=== PATIENT | male | born 1950 | race Caucasian/White ===

== ENCOUNTER 2020-04-22 13:12 | Emergency (ER) | payer MEDICARE, SELFPAY ==
--- NOTE | ~2020-04-22 | XR_ITS ---
EXAMINATION: XR chest 2V 04/22/2020 13:29 INDICATION: Cough and congestion. PROCEDURE: 2 view chest COMPARISON: No prior studies for comparison. FINDINGS: The lungs are clear. The cardiomediastinal silhouette is within normal limits. There are no pleural effusions. There is no pneumothorax suspected. IMPRESSION: 1: NO ACUTE CARDIOPULMONARY DISEASE. Reviewed, dictated and finalized at location A.
[2020-04-22 13:16] VITALS: BP 127/62; PULSE 80; RESP 20; TEMP 37.3; O2SAT 95
--- NOTE | 2020-04-22 13:20 | ED.URI ---
HPI - URI/Sore Throat General Chief Complaint: Upper Respiratory Infection Stated Complaint: cough/sob Time Seen by Provider: 04/22/20 13:20 Source: patient and RN notes reviewed Mode of arrival: ambulatory Limitations: no limitations History of Present Illness HPI Narrative: 69 year old male who presents to [facility] with complaints of 3 day history of cough with some difficulty breathing, sinus congestion and drainage, low grade temperature and general fatigue. Patient states that he has coughed so much that his ribs hurt. Patient denies any loss of smell or taste, no GI upset vomiting or diarrhea. He has not taken any OTC cold medication states that he is afraid to due to all the medications he takes, has taken some Tylenol only. He state that he does have a rescue inhaler at home but didn't think to use it. 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 He states that his PCP is at [facility] MD elicited complaint: cough, rhinorrhea, nasal congestion and other (shortness of breath) Pertinent past history: immunosuppression (RA) Onset (ago): day(s) (3) Consistency: constant Severity: moderate (bilateral ribs) Pain scale (0-10): 6 Description of mucous: clear and yellow Able to tolerate fluids by mouth: Yes Exacerbating factors: exertion and deep breaths Relieving factors: nothing Associated symptoms: fever (low grade), rhinorrhea, nasal congestion, cough, shortness of breath and other (fatigue) Treatments prior to arrival: acetaminophen Related Data Home Medications Medication Instructions Recorded Confirmed aspirin [Aspirin Low Dose] 04/22/20 ejaphylmj-ustdeltr-fvsexdifkt 1 tablet PO TID 04/22/20 04/22/20 gabapentin 600 mg PO TID 04/22/20 04/22/20 leflunomide 20 mg PO DAILY 04/22/20 04/22/20 levothyroxine 50 mcg PO DAILY 04/22/20 04/22/20 melatonin 04/22/20 sertraline 50 mg PO DAILY 04/22/20 04/22/20 sertraline 100 mg PO DAILY 04/22/20 04/22/20 simvastatin 40 mg PO HS 04/22/20 04/22/20 sulfasalazine 0.5 g PO DAILY 04/22/20 04/22/20 tamsulosin 0.4 mg PO DAILY 04/22/20 04/22/20 valsartan 160 mg PO DAILY 04/22/20 04/22/20 Allergies Allergy/AdvReac Type Severity Reaction Status Date / Time quinapril [From Accupril] Allergy Unknown Verified 04/22/20 13:20 Review of Systems Review of Systems: Narrative: CONSTITUTIONAL: reports mild temp elevation,no chills, or sweats. EYES: Denies visual changes, redness, or discharge. ENT: Positive rhinorrhea, congestion, no sore throat, or otalgia. CARDIOVASCULAR: Denies chest pain, palpitations, or edema. RESPIRATORY: Positive cough or dyspnea. GASTROINTESTINAL: Denies abdominal pain, nausea, vomiting, or diarrhea. GENITOURINARY: Denies dysuria or hematuria. SKIN: Denies rash or itching. MUSCULOSKELETAL: Denies back pain, joint pain, positive myalgia and fatigue NEUROLOGIC: Denies headache, numbness, or weakness. PSYCHIATRIC: Positive history of anxiety or depression. All systems reviewed & are unremarkable except as noted in HPI and below PMFSH Past Medical History Medical History (Updated 04/22/20 @ 14:34 by Marni Gordon NP) Cervical vertebral fusion Hyperlipidemia Hypertension Hypothyroidism Neuropathy Parkinsonism Rheumatoid arthritis Salivary duct carcinoma Sleep apnea Surgical History Surgical History (Updated 04/22/20 @ 14:27 by Marni Gordon NP) H/O left wrist surgery History of total right knee replacement Hx of shoulder surgery Social History Social History (Updated 04/22/20 @ 14:28 by Marni Gordon NP) Smoking status: Former smoker Alcohol intake: former Substance use: never Living arrangements: with family Occupation/Education: retired 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
== END 2020-04-22 14:07 | disposition home or self-care (01) ==
PROVIDERS: Emergency Provider Registered Nurse
DX: J40 Bronchitis, not specified as acute or chronic (principal); J06.9 Acute upper respiratory infection, unspecified; Z20.828 Contact with and (suspected) exposure to other viral communicable diseases; Z87.891 Personal history of nicotine dependence; Z96.651 Presence of right artificial knee joint; E78.5 Hyperlipidemia, unspecified; I10 Essential (primary) hypertension; E03.9 Hypothyroidism, unspecified; M06.9 Rheumatoid arthritis, unspecified; G47.30 Sleep apnea, unspecified; G62.9 Polyneuropathy, unspecified
CPT/HCPCS: 71046; 99213; G0463

== ENCOUNTER 2021-04-09 18:15 | Emergency (ER) | payer MEDICARE, SELFPAY ==
--- NOTE | ~2021-04-09 | XR_ITS ---
XR chest 2V DATE: 04/09/2021 18:35 INDICATION: Shortness of breath, wheezing, cough TECHNIQUE: PA and lateral views COMPARISON: 04/22/2020 PA and lateral FINDINGS: Status post lower anterior cervical spine surgical fusion. Diffuse idiopathic skeletal hyperostosis of the thoracic spine. Normal heart size. No hilar or mediastinal enlargement. No pulmonary infiltrate or consolidation, ple ural effusion or pulmonary vascular congestion or pneumothorax. IMPRESSION: No active cardiopulmonary disease Reviewed, dictated and finalized at location A.
[2021-04-09 18:20] VITALS: BP 164/78; PULSE 81; RESP 16; TEMP 36.5; O2SAT 96
--- NOTE | 2021-04-09 18:41 | ED.GENADULT ---
HPI - General Adult General Chief complaint: Upper Respiratory Infection Stated complaint: sob/wheezing/cough Time Seen by Provider: 04/09/21 18:28 Source: patient and RN notes reviewed Mode of arrival: ambulatory Limitations: no limitations History of Present Illness HPI narrative: 70-year-old male presents with complaints of congestion, sneezing, upper respiratory infection symptoms, cough, intermittent headache (not the worst of his life) and shortness of breath for the past 4-5 days. Nedwin reports increasing upper respiratory infections symptoms throughout the day with wheezing. No treatment. Received a NEGATIVE rapid COVID-19test prior to this visit. Constant dry cough with chest congestion. Rhinorrhea and nasal congestion. Denies sore throat. No high fevers, drooling, neck or throat swelling. No chest pain. No known exacerbation factors. Denies nausea, vomiting, and abdominal pain. Tolerating liquids well. Remains active. The patient reports he has not been diagnosed with COVID-19. The patient reports he received 2 Pfizer COVID-19 vaccines. The patient reports he is waiting for the results of a [id number] lab test. The patient reports he does not have weakness, fatigue, or myalgia. The patient reports he does not have any loss of taste or smell and diarrhea. Denies recent traveling. Denies concerns for COVID-19 or exposures. At this time, the patient is not suspected of having COVID-19. Some parts of this dictation were generated by voice recognition software and may contain typographical and/or grammatical inaccuracies. Related Data Home Medications Medication Instructions Recorded Confirmed aspirin [Aspirin Low Dose] 81 mg PO DAILY 04/22/20 04/09/21 ylexwievx-reojhene-fldhkzldok 1 tablet PO TID 04/22/20 04/09/21 gabapentin 600 mg PO TID 04/22/20 04/09/21 leflunomide 20 mg PO DAILY 04/22/20 04/09/21 levothyroxine 50 mcg PO DAILY 04/22/20 04/09/21 melatonin 2 mg PO USEASDIRECTD 04/22/20 04/09/21 sertraline 50 mg PO DAILY 04/22/20 04/09/21 sertraline 100 mg PO DAILY 04/22/20 04/09/21 simvastatin 40 mg PO HS 04/22/20 04/09/21 sulfasalazine 0.5 g PO DAILY 04/22/20 04/09/21 tamsulosin 0.4 mg PO DAILY 04/22/20 04/09/21 valsartan 160 mg PO DAILY 04/22/20 04/09/21 Allergies Allergy/AdvReac Type Severity Reaction Status Date / Time quinapril [From Accupril] Allergy Unknown Verified 04/09/21 18:21 Opioids-Meperidine and AdvReac Irritable Verified 04/09/21 18:22 Related Review of Systems Review of Systems: CONSTITUTIONAL: Denies fever, chills, sweats. EYES: Denies visual changes, redness, discharge. ENT: Complaints of rhinorrhea, congestion. Denies sore throat, otalgia. CARDIOVASCULAR: Denies chest pain, palpitations, edema. RESPIRATORY: Complaints of dyspnea, wheezing, cough. GASTROINTESTINAL: Denies abdominal pain, nausea, vomiting, diarrhea. GENITOURINARY: Denies dysuria, hematuria, abnormal discharge. SKIN: Denies rash or itching. MUSCULOSKELETAL: Denies acute back pain, joint pain, or myalgia. NEUROLOGIC: Denies numbness or focal weakness. Complaints of intermittent [place]. PSYCHIATRIC: Denies anxiety or depression. All systems reviewed & are unremarkable except as noted in HPI and below. [facility] Past Medical History Medical History (Updated 04/16/21 @ 14:00 by HOLLIS Mcghee) Cervical vertebral fusion Hyperlipidemia Hypertension Hypothyroidism Neuropathy Obese Parkinsonism Rheumatoid arthritis Rotator cuff arthropathy LT Salivary duct carcinoma Sleep apnea CPAP Surgical History Surgical History (Updated 04/09/21 @ 19:32 by HOLLIS Mcghee) H/O left wrist surgery History of splenectomy History of total right knee replacement X2 Hx of shoulder surgery Family History Family History (Updated 04/09/21 @ 19:33 by HOLLIS Mcghee) Father Kidney failure Cirrhosis of liver ETOH abuse Mother Dementia Social History Soci
[2021-04-09] MEDS: ALBUTEROL SULFATE NEB 2.5 MG/3 ML INH INHALATION (18:58)
[2021-04-09] MEDS: IPRATROPIUM BR 0.02% INH SOLN 0.5 MG/2.5 ML VIAL INHALATION (18:58)
[2021-04-09] MEDS: predniSONE 20 MG TABLET 60 MG PO (18:59)
[2021-04-09 19:33] VITALS: PULSE 74; RESP 24; O2SAT 95
[2021-04-09 19:37] VITALS: PULSE 66; RESP 20; O2SAT 65
== END 2021-04-09 19:30 | disposition home or self-care (01) ==
PROVIDERS: Emergency Provider Nurse Practitioner Family
DX: B34.9 Viral infection, unspecified (principal); Z87.891 Personal history of nicotine dependence; Z96.651 Presence of right artificial knee joint; E78.5 Hyperlipidemia, unspecified; I10 Essential (primary) hypertension; E03.9 Hypothyroidism, unspecified; G62.9 Polyneuropathy, unspecified; G20 Parkinson's disease; M06.9 Rheumatoid arthritis, unspecified; G47.30 Sleep apnea, unspecified
CPT/HCPCS: 71046; 94640; 99213; G0463; J7512